=== PATIENT | male | born 1960 | race Caucasian/White ===

== ENCOUNTER 2018-12-15 08:45 | Inpatient (IN) ==
[2018-12-15 09:28] LABS: Basophils % 1.2 % (0.0-0.8); Eosinophils % 1.7 % (0.00-10.9); Hemoglobin 11.5 GM/DL (14.0-18.0); Immature Granulocytes % 0.6 %; Immature Granulocytes Absolute 0.01 #; Lymphocytes % 54.9 % (21.2-54.2); Mean Corpuscular HGB Conc 32.9 GM/DL (32-36); Mean Corpuscular Volume 90.2 FL (87-102); Mean Platelet Volume 10.1 FL (9.6-12.0); Monocytes % 28.9 % (1.7-12.7); Neutrophils % 12.7 % (38.7-73.9); Platelet Count 177 T/CUMM (130-400); Red Blood Count 3.88 MC/CUMM (3.8-5.5); Red Cell Distribution Width 18.5 % (9.3-17.3); White Blood Count 1.7 T/CUMM (4-12)
[2018-12-15] MEDS ORDERED: LACTATED RINGERS 1,000 ML IV ONE ×2 (09:42→11:45)
[2018-12-15 09:47] LABS: PT Patient Result 10.6 SECS (9.6-12.2); Partial Thromboplastin Time 25.3 SECS (20.8-36.0)
[2018-12-15 09:48] LABS: Band Neutrophils 2 % (0-10); Eosinophils 1 % (0-10); Lymphocytes 54 % (20-55); Segmented Neutrophils 15 % (50-85); Total Cells Counted 100
[2018-12-15 09:49] LABS: Microcytosis Slight; Ovalocytes Few; Platelet Estimate Adequate; Schistocytes Slight
[2018-12-15 10:07] LABS: Albumin 3.8 G/DL (3.4-5.0); Bilirubin,Total 0.4 MG/DL (0.2-1.0); Calcium 9.4 MG/DL (8.5-10.1); Osmolality,Calculated 281.7 MOS/KG (273-304); Total Protein 7.8 G/DL (6.4-8.3)
[2018-12-15] MEDS ORDERED: MEROPENEM 1,000 MG in SODIUM CHLORIDE 0.9% 100 ML IV STA (15:15)
[2018-12-15 15:30] LABS: Apearance,Urine Slightly Hazy (Clear); Bacteria,Urine Occasional /HPF (Few); Bilirubin,Urine Negative (Negative); Blood, Urine Negative (Negative); Glucose,Urine (UA) Negative (Negative); Hyaline Casts,Urine 16 /LPF (0-3); Ketones,Urine 5 mg/dL (Negative); Mucus,Urine Many /LPF (Occasional); Nitrite,Urine Negative (Negative); Protein,Urine 100 MG/DL; Sperm,Urine Few /HPF (Negative); Urine Color Amber (Yellow); Urine Specific Gravity 1.025 (1.001-1.035); Urine Urobilinogen < 2.0 EU/DL (0.2-1.0); WBC,Urine 4 /HPF (0-6)
[2018-12-15] MEDS ORDERED: ONDANSETRON 4 MG/2 ML VIAL IV PRN (16:02)
[2018-12-15] MEDS ORDERED: PROMETHAZINE 25 MG TABLET PO PRN (16:02)
[2018-12-15] MEDS ORDERED: ALBUTEROL/IPRATROPIUM 3 ML NEB RESP TX PRN (16:02)
[2018-12-15] MEDS ORDERED: ACETAMINOPHEN 325 MG TABLET PO PRN (16:02)
[2018-12-15] MEDS ORDERED: MAGNESIUM SULF RIDER 2 GM in PREMIX 1 EACH IV PRN (16:08)
[2018-12-15] MEDS ORDERED: MAGNESIUM SULF RIDER 4 GM in PREMIX 1 EACH IV PRN (16:08)
[2018-12-15] MEDS ORDERED: POTASSIUM CHLORIDE RIDER 10 MEQ in PREMIX 1 EACH IV PRN (16:08)
[2018-12-15] MEDS: SODIUM CHLORIDE 0.9% 1,000 ML IV SCH (18:27)
[2018-12-15] MEDS: FILGRASTIM-SNDZ 300 MCG/0.5 ML SYRINGE SUBCUT SCH (18:27)
[2018-12-15] MEDS: ENOXAPARIN 40 MG/0.4 ML SYRINGE SUBCUT SCH (20:52)
[2018-12-15] MEDS: POTASSIUM CHLORIDE RIDER 20 MEQ in PREMIX 1 EACH IV PRN ×2 (20:52→23:27)
[2018-12-15] MEDS: SIMVASTATIN 10 MG TABLET PO SCH (20:52)
[2018-12-15] MEDS ORDERED: PANTOPRAZOLE 40 MG TABLET PO SCH (21:00)
[2018-12-15] MEDS ORDERED: PROMETHAZINE 25 MG/1 ML VIAL IM PRN (22:30)
[2018-12-15] MEDS: LOPERAMIDE 2 MG CAPSULE PO PRN (22:41)
[2018-12-15] MEDS: oxyCODONE ER 20 MG TABLET PO SCH (23:21)
[2018-12-16] MEDS: oxyCODONE ER 20 MG TABLET PO SCH (05:19)
[2018-12-16] MEDS: LOPERAMIDE 2 MG CAPSULE PO PRN ×2 (05:19→17:52)
[2018-12-16 05:32] LABS: Basophils % 0.4 % (0.0-0.8); Eosinophils % 0.9 % (0.00-10.9); Hematocrit 27.3 VOL% (42.0-52.0); Hemoglobin 8.5 GM/DL (14.0-18.0); Immature Granulocytes % 0.4 %; Immature Granulocytes Absolute 0.01 #; Lymphocytes # 0.5 10*3/uL (1.4-4.0); Lymphocytes % 20.3 % (21.2-54.2); Mean Corpuscular HGB Conc 31.1 GM/DL (32-36); Mean Corpuscular Volume 93.8 FL (87-102); Monocytes % 23.8 % (1.7-12.7); Neutrophils % 54.2 % (38.7-73.9); Platelet Count 132 T/CUMM (130-400); Red Blood Count 2.91 MC/CUMM (3.8-5.5); Red Cell Distribution Width 18.6 % (9.3-17.3); White Blood Count 2.3 T/CUMM (4-12)
[2018-12-16 05:55] LABS: Band Neutrophils 17 % (0-10); Eosinophils 2 % (0-10); Lymphocytes 23 % (20-55); Nucleated Red Blood Cells 2 (0-5); Segmented Neutrophils 33 % (50-85); Total Cells Counted 100
[2018-12-16 05:56] LABS: Hypochromasia 1+; Microcytosis Slight; Platelet Estimate Normal
[2018-12-16 06:22] LABS: Bilirubin,Total 0.4 MG/DL (0.2-1.0); Calcium 8.6 MG/DL (8.5-10.1); Osmolality,Calculated 281.4 MOS/KG (273-304); Total Protein 6.4 G/DL (6.4-8.3)
[2018-12-16] MEDS: SODIUM CHLORIDE 0.9% 1,000 ML IV SCH ×2 (06:42→14:53)
[2018-12-16] MEDS ORDERED: amLODIPine 10 MG TABLET PO SCH (09:00)
[2018-12-16] MEDS: FILGRASTIM-SNDZ 300 MCG/0.5 ML SYRINGE SUBCUT SCH (09:35)
[2018-12-16] MEDS: BISMUTH SUBSALICYLATE 30 ML/524 MG 240 ML/BOTTLE PO SCH ×4 (09:35→20:12)
[2018-12-16] MEDS: METOPROLOL SUCCINATE XL 50 MG TABLET PO SCH (09:36)
[2018-12-16] MEDS: ASPIRIN CHEW 81 MG TABLET PO SCH (09:36)
[2018-12-16] MEDS: CLOPIDOGREL 75 MG TABLET PO SCH (09:36)
[2018-12-16] MEDS: PANTOPRAZOLE 40 MG VIAL IV SCH (09:42)
[2018-12-16] MEDS: POTASSIUM CHLORIDE RIDER 20 MEQ in PREMIX 1 EACH IV PRN ×3 (09:44→22:47)
[2018-12-16] MEDS ORDERED: SODIUM CHLORIDE 0.9% 500 ML IV ONE (12:00)
[2018-12-16] MEDS: oxyCODONE IR 5 MG TABLET PO PRN ×2 (13:04→20:11)
[2018-12-16] MEDS: ENOXAPARIN 40 MG/0.4 ML SYRINGE SUBCUT SCH (20:11)
[2018-12-16] MEDS: SIMVASTATIN 10 MG TABLET PO SCH (20:12)
[2018-12-17] MEDS: oxyCODONE IR 5 MG TABLET PO PRN ×4 (02:23→21:50)
[2018-12-17] MEDS: SODIUM CHLORIDE 0.9% 1,000 ML IV SCH ×3 (02:25→10:47)
[2018-12-17 05:14] LABS: Basophils % 0.4 % (0.0-0.8); Eosinophils % 0.4 % (0.00-10.9); Hematocrit 24.4 VOL% (42.0-52.0); Hemoglobin 7.6 GM/DL (14.0-18.0); Immature Granulocytes % 7.8 %; Immature Granulocytes Absolute 0.43 #; Lymphocytes # 0.7 10*3/uL (1.4-4.0); Lymphocytes % 13.5 % (21.2-54.2); Mean Corpuscular HGB Conc 31.1 GM/DL (32-36); Mean Corpuscular Volume 96.4 FL (87-102); Monocytes % 11.5 % (1.7-12.7); NRBC # 0.07 10*3/uL; Neutrophils % 66.4 % (38.7-73.9); Platelet Count 131 T/CUMM (130-400); Red Blood Count 2.53 MC/CUMM (3.8-5.5); Red Cell Distribution Width 19.3 % (9.3-17.3); White Blood Count 5.5 T/CUMM (4-12)
[2018-12-17 05:37] LABS: Albumin 2.5 G/DL (3.4-5.0); Bilirubin,Total 0.6 MG/DL (0.2-1.0); Osmolality,Calculated 282.1 MOS/KG (273-304); Total Protein 5.7 G/DL (6.4-8.3)
[2018-12-17 05:42] LABS: Band Neutrophils 10 % (0-10); Hypochromasia 1+; Lymphocytes 15 % (20-55); Microcytosis Slight; Nucleated Red Blood Cells 3 (0-5); Ovalocytes Slight; Platelet Estimate Normal; Segmented Neutrophils 67 % (50-85); Total Cells Counted 100
[2018-12-17] MEDS ORDERED: SODIUM CHLORIDE 0.9% 1,000 ML IV PRN (08:34)
[2018-12-17] MEDS: METOPROLOL SUCCINATE XL 50 MG TABLET PO SCH (09:29)
[2018-12-17] MEDS: CLOPIDOGREL 75 MG TABLET PO SCH (09:29)
[2018-12-17] MEDS: ASPIRIN CHEW 81 MG TABLET PO SCH (09:29)
[2018-12-17] MEDS: FILGRASTIM-SNDZ 300 MCG/0.5 ML SYRINGE SUBCUT SCH (09:29)
[2018-12-17] MEDS: PANTOPRAZOLE 40 MG VIAL IV SCH (09:29)
[2018-12-17] MEDS: BISMUTH SUBSALICYLATE 30 ML/524 MG 240 ML/BOTTLE PO SCH ×4 (09:35→21:50)
[2018-12-17] MEDS: ENOXAPARIN 40 MG/0.4 ML SYRINGE SUBCUT SCH (21:50)
[2018-12-17] MEDS: SIMVASTATIN 10 MG TABLET PO SCH (21:50)
[2018-12-18] MEDS: oxyCODONE IR 5 MG TABLET PO PRN ×4 (03:24→17:14)
[2018-12-18 04:47] LABS: Basophils # 0.1 10*3/uL (0.0-0.2); Basophils % 0.4 % (0.0-0.8); Eosinophils % 0.3 % (0.00-10.9); Hematocrit 28.8 VOL% (42.0-52.0); Hemoglobin 9.3 GM/DL (14.0-18.0); Immature Granulocytes % 2.8 %; Immature Granulocytes Absolute 0.32 #; Lymphocytes # 0.9 10*3/uL (1.4-4.0); Lymphocytes % 7.6 % (21.2-54.2); Mean Corpuscular HGB Conc 32.3 GM/DL (32-36); Mean Corpuscular Volume 92.6 FL (87-102); NRBC # 0.08 10*3/uL; Neutrophils % 80.9 % (38.7-73.9); Platelet Count 133 T/CUMM (130-400); Red Blood Count 3.11 MC/CUMM (3.8-5.5); Red Cell Distribution Width 18.4 % (9.3-17.3); White Blood Count 11.3 T/CUMM (4-12)
[2018-12-18 05:12] LABS: Band Neutrophils 2 % (0-10); Lymphocytes 5 % (20-55); Metamyelocytes 1 %; Nucleated Red Blood Cells 1 (0-5); Segmented Neutrophils 91 % (50-85); Total Cells Counted 100
[2018-12-18 05:13] LABS: Microcytosis 1+; Ovalocytes Slight; Platelet Estimate Adequate
[2018-12-18 05:19] LABS: Albumin 2.4 G/DL (3.4-5.0); Bilirubin,Total 0.4 MG/DL (0.2-1.0); Calcium 8.1 MG/DL (8.5-10.1); Osmolality,Calculated 283.8 MOS/KG (273-304); Total Protein 5.5 G/DL (6.4-8.3)
[2018-12-18] MEDS: POTASSIUM CHLORIDE RIDER 20 MEQ in PREMIX 1 EACH IV PRN (05:57)
[2018-12-18] MEDS: SODIUM CHLORIDE 0.9% 1,000 ML IV SCH ×2 (05:57→12:12)
[2018-12-18] MEDS ORDERED: DEXT 5% NACL 0.45% KCL 40 MEQ 40 MEQ/1,000 ML BAG IV SCH (08:00)
[2018-12-18] MEDS: POTASSIUM CHLORIDE 20 MEQ TABLET PO SCH ×3 (09:02→14:39)
[2018-12-18] MEDS: CLOPIDOGREL 75 MG TABLET PO SCH (09:02)
[2018-12-18] MEDS: METOPROLOL SUCCINATE XL 50 MG TABLET PO SCH (09:03)
[2018-12-18] MEDS: ASPIRIN CHEW 81 MG TABLET PO SCH (09:03)
[2018-12-18] MEDS: PANTOPRAZOLE 40 MG VIAL IV SCH (09:07)
[2018-12-18] MEDS: BISMUTH SUBSALICYLATE 30 ML/524 MG 240 ML/BOTTLE PO SCH ×3 (09:10→17:08)
[2018-12-18 16:02] VITALS: BP 121/81
[2018-12-18] MEDS ORDERED: HEPARIN LOCK FLUSH 500 UNIT/5 ML SYRINGE IV ONE (16:10)
== END 2018-12-18 17:34 | DRG 392 ==
LOC: N.ED 08:45 → SUATTDRO 16:02 → N.EDINP 16:02 → N.4E 16:39
PROVIDERS: ADMIT Internal Medicine; ATTEND Internal Medicine

== ENCOUNTER 2019-04-12 15:52 | Inpatient (IN) ==
[2019-04-12] MEDS ORDERED: MORPHINE 4 MG/1 ML VIAL IV STA (17:50)
[2019-04-12] MEDS ORDERED: ONDANSETRON 4 MG/2 ML VIAL IV STA (17:50)
[2019-04-12] MEDS ORDERED: LACTATED RINGERS 500 ML IV ONE (17:50)
[2019-04-12 17:57] LABS: Basophils % 0.4 % (0.0-0.8); Eosinophils # 0.1 10*3/uL (0.0-0.87); Eosinophils % 0.9 % (0.00-10.9); Hematocrit 32.7 VOL% (42.0-52.0); Hemoglobin 10.4 GM/DL (14.0-18.0); Immature Granulocytes % 0.7 %; Immature Granulocytes Absolute 0.05 #; Lymphocytes # 1.1 10*3/uL (1.4-4.0); Lymphocytes % 15.2 % (21.2-54.2); Mean Corpuscular HGB Conc 31.8 GM/DL (32-36); Mean Corpuscular Volume 100.3 FL (87-102); Mean Platelet Volume 9.6 FL (9.6-12.0); Neutrophils % 73.8 % (38.7-73.9); Platelet Count 182 T/CUMM (130-400); Red Blood Count 3.26 MC/CUMM (3.8-5.5); Red Cell Distribution Width 14.1 % (9.3-17.3); White Blood Count 7.5 T/CUMM (4-12)
[2019-04-12 18:11] LABS: Osmolality,Calculated 285.1 MOS/KG (273-304)
[2019-04-12] MEDS ORDERED: LACTATED RINGERS 2,000 ML IV ONE (18:29)
[2019-04-12] MEDS ORDERED: FLUCONAZOLE 100 MG TABLET PO STA (18:32)
[2019-04-12] MEDS ORDERED: cefTRIAXone 1,000 MG in SODIUM CHLORIDE 0.9% 100 ML IV STA (18:33)
[2019-04-12 19:02] LABS: Apearance,Urine CLOUDY (Clear); Bilirubin,Urine Negative (Negative); Blood, Urine Negative (Negative); Glucose,Urine (UA) Negative (Negative); Hyaline Casts,Urine 23 /LPF (0-3); Ketones,Urine 5 mg/dL (Negative); Mucus,Urine Many /LPF (Occasional); Nitrite,Urine Negative (Negative); Protein,Urine 30 MG/DL; RBC,Urine 1 /HPF (0-4); Squamous Epithelial Cell,Urine Occasional /HPF (0-10); Urine Color Yellow (Yellow); Urine Specific Gravity 1.025 (1.001-1.035); WBC,Urine 10 /HPF (0-6)
[2019-04-12] MEDS ORDERED: SODIUM CHLORIDE 0.9% 2,000 ML IV STA (19:21)
[2019-04-12] MEDS ORDERED: ONDANSETRON 4 MG/2 ML VIAL IV PRN (19:53)
[2019-04-12] MEDS ORDERED: DOCUSATE SODIUM 100 MG CAPSULE PO PRN (19:53)
[2019-04-12] MEDS ORDERED: ACETAMINOPHEN 325 MG TABLET PO PRN (19:53)
[2019-04-12] MEDS ORDERED: METHOCARBAMOL 750 MG TABLET PO PRN (20:14)
[2019-04-12] MEDS ORDERED: LORazepam 1 MG TABLET PO PRN (20:14)
[2019-04-12] MEDS ORDERED: NITROGLYCERIN SL 0.4 MG TABLET SL PRN (20:14)
[2019-04-12] MEDS ORDERED: PROCHLORPERAZINE 10 MG TABLET PO PRN (20:14)
[2019-04-12] MEDS ORDERED: MORPHINE 4 MG/1 ML VIAL IV PRN (20:17)
[2019-04-12] MEDS ORDERED: LIPASE PROTEASE AMYLASE PO SCH (21:00)
[2019-04-12] MEDS: MELATONIN 3 MG TABLET PO SCH (23:13)
[2019-04-12] MEDS: SIMVASTATIN 20 MG TABLET PO SCH (23:13)
[2019-04-12] MEDS: ENOXAPARIN 40 MG/0.4 ML SYRINGE SUBCUT SCH (23:14)
[2019-04-12] MEDS: SODIUM CHLORIDE 0.9% IV SCH (23:14)
[2019-04-12] MEDS: ACYCLOVIR IV SCH (23:14)
[2019-04-12] MEDS: gemfibroziL 600 MG TABLET PO SCH (23:14)
[2019-04-12] MEDS: POTASSIUM CHLORIDE 10 MEQ TABLET PO SCH (23:14)
[2019-04-12] MEDS: BUDESONIDE/FORMOTEROL 160-4.5 INHALER 6 GM INH SCH (23:15)
[2019-04-13] MEDS: SODIUM CHLORIDE 0.9% IV SCH ×3 (04:04→20:56)
[2019-04-13] MEDS: ACYCLOVIR IV SCH ×3 (04:04→20:56)
[2019-04-13 05:52] LABS: Basophils % 0.6 % (0.0-0.8); Eosinophils # 0.1 10*3/uL (0.0-0.87); Eosinophils % 1.5 % (0.00-10.9); Hematocrit 28.7 VOL% (42.0-52.0); Hemoglobin 9.2 GM/DL (14.0-18.0); Immature Granulocytes % 0.6 %; Immature Granulocytes Absolute 0.03 #; Lymphocytes # 0.9 10*3/uL (1.4-4.0); Lymphocytes % 17.1 % (21.2-54.2); Mean Corpuscular HGB Conc 32.1 GM/DL (32-36); Mean Corpuscular Volume 100.7 FL (87-102); Mean Platelet Volume 9.6 FL (9.6-12.0); Monocytes % 9.8 % (1.7-12.7); Neutrophils % 70.4 % (38.7-73.9); Platelet Count 171 T/CUMM (130-400); Red Blood Count 2.85 MC/CUMM (3.8-5.5); Red Cell Distribution Width 14.2 % (9.3-17.3); White Blood Count 5.3 T/CUMM (4-12)
[2019-04-13 06:17] LABS: Albumin 2.7 G/DL (3.4-5.0); Bilirubin,Total 0.6 MG/DL (0.2-1.0); Calcium 8.1 MG/DL (8.5-10.1); Osmolality,Calculated 282.3 MOS/KG (273-304); Total Protein 6.4 G/DL (6.4-8.3)
[2019-04-13 06:21] LABS: % Iron Saturation 11.8 % (18-50); Ferritin 116.5 ng/ml (26-388)
[2019-04-13 06:24] LABS: Folate 4.4 NG/ML (5.4-24.0); Vitamin B12 383 PG/ML (211-911)
[2019-04-13 06:53] LABS: Sedimentation Rate-Westergren 90 MM/HR (0-20)
[2019-04-13] MEDS: gemfibroziL 600 MG TABLET PO SCH ×2 (09:06→20:54)
[2019-04-13] MEDS: MULTIVITAMIN (BEROCCA) TABLET PO SCH (09:06)
[2019-04-13] MEDS: FLUoxetine 20 MG CAPSULE PO SCH (09:06)
[2019-04-13] MEDS: POTASSIUM CHLORIDE 10 MEQ TABLET PO SCH ×2 (09:07→20:54)
[2019-04-13] MEDS: METOPROLOL SUCCINATE XL 50 MG TABLET PO SCH (09:07)
[2019-04-13] MEDS: CHOLECALCIFEROL 1,000 UNIT TABLET PO SCH (09:08)
[2019-04-13] MEDS: ASPIRIN CHEW 81 MG TABLET PO SCH (09:08)
[2019-04-13] MEDS: CLOPIDOGREL 75 MG TABLET PO SCH (09:09)
[2019-04-13] MEDS: BUDESONIDE/FORMOTEROL 160-4.5 INHALER 6 GM INH SCH ×2 (09:11→20:56)
[2019-04-13] MEDS: ITRACONAZOLE 100 MG CAPSULE PO SCH (09:50)
[2019-04-13] MEDS ORDERED: IRON SUCROSE 300 MG in SODIUM CHLORIDE 0.9% 100 ML IV ONE (10:51)
[2019-04-13] MEDS: FOLIC ACID 1 MG TABLET PO SCH (14:00)
[2019-04-13] MEDS: KETOROLAC 30 MG/1 ML VIAL IV PRN ×2 (14:01→21:04)
[2019-04-13] MEDS: MELATONIN 3 MG TABLET PO SCH (20:54)
[2019-04-13] MEDS: ENOXAPARIN 40 MG/0.4 ML SYRINGE SUBCUT SCH (20:54)
[2019-04-13] MEDS: FERROUS SULFATE 325 MG TABLET PO SCH (20:54)
[2019-04-13] MEDS: SIMVASTATIN 20 MG TABLET PO SCH (20:56)
[2019-04-13] MEDS: cefTRIAXone 1,000 MG in SYRINGE 1 EACH IV SCH (20:57)
[2019-04-14] MEDS: SODIUM CHLORIDE 0.9% IV SCH ×3 (05:54→21:05)
[2019-04-14] MEDS: ACYCLOVIR IV SCH ×3 (05:54→21:05)
[2019-04-14 05:56] LABS: Albumin 2.6 G/DL (3.4-5.0); Bilirubin,Total 0.4 MG/DL (0.2-1.0); Calcium 8.5 MG/DL (8.5-10.1); Osmolality,Calculated 284.4 MOS/KG (273-304); Total Protein 6.3 G/DL (6.4-8.3)
[2019-04-14] MEDS: KETOROLAC 30 MG/1 ML VIAL IV PRN ×2 (09:39→21:00)
[2019-04-14] MEDS: FERROUS SULFATE 325 MG TABLET PO SCH ×2 (09:43→20:58)
[2019-04-14] MEDS: FOLIC ACID 1 MG TABLET PO SCH (09:43)
[2019-04-14] MEDS: MULTIVITAMIN (BEROCCA) TABLET PO SCH (09:43)
[2019-04-14] MEDS: ASPIRIN CHEW 81 MG TABLET PO SCH (09:44)
[2019-04-14] MEDS: FLUoxetine 20 MG CAPSULE PO SCH (09:44)
[2019-04-14] MEDS: CHOLECALCIFEROL 1,000 UNIT TABLET PO SCH (09:45)
[2019-04-14] MEDS: POTASSIUM CHLORIDE 10 MEQ TABLET PO SCH ×2 (09:45→20:58)
[2019-04-14] MEDS: gemfibroziL 600 MG TABLET PO SCH ×2 (09:45→20:58)
[2019-04-14] MEDS: BUDESONIDE/FORMOTEROL 160-4.5 INHALER 6 GM INH SCH ×2 (09:46→20:58)
[2019-04-14] MEDS: CLOPIDOGREL 75 MG TABLET PO SCH (09:46)
[2019-04-14] MEDS: DICLOFENAC 1.3% PATCH 5/PACK TRANSDERM SCH ×2 (10:12→20:59)
[2019-04-14] MEDS: ITRACONAZOLE 100 MG CAPSULE PO SCH (10:14)
[2019-04-14 12:33] LABS: Hemoglobin A1 (Alkaline) 97.5 % (96.5-98.5); Hemoglobin A2 (Alkaline) 2.5 % (1.5-3.5)
[2019-04-14] MEDS: METOPROLOL SUCCINATE XL 50 MG TABLET PO SCH (12:58)
[2019-04-14] MEDS: cefTRIAXone 1,000 MG in SYRINGE 1 EACH IV SCH (20:57)
[2019-04-14] MEDS: MELATONIN 3 MG TABLET PO SCH (20:58)
[2019-04-14] MEDS: SIMVASTATIN 20 MG TABLET PO SCH (20:58)
[2019-04-14] MEDS: ENOXAPARIN 40 MG/0.4 ML SYRINGE SUBCUT SCH (20:59)
[2019-04-15] MEDS: ACYCLOVIR IV SCH ×3 (04:45→22:06)
[2019-04-15] MEDS: SODIUM CHLORIDE 0.9% IV SCH ×3 (04:45→22:06)
[2019-04-15 05:56] LABS: Albumin 2.7 G/DL (3.4-5.0); Bilirubin,Total 0.8 MG/DL (0.2-1.0); Calcium 8.3 MG/DL (8.5-10.1); Osmolality,Calculated 287.8 MOS/KG (273-304); Total Protein 6.6 G/DL (6.4-8.3)
[2019-04-15] MEDS: FLUoxetine 20 MG CAPSULE PO SCH (09:41)
[2019-04-15] MEDS: FOLIC ACID 1 MG TABLET PO SCH (09:41)
[2019-04-15] MEDS: MULTIVITAMIN (BEROCCA) TABLET PO SCH (09:41)
[2019-04-15] MEDS: CHOLECALCIFEROL 1,000 UNIT TABLET PO SCH (09:41)
[2019-04-15] MEDS: ITRACONAZOLE 100 MG CAPSULE PO SCH (09:41)
[2019-04-15] MEDS: POTASSIUM CHLORIDE 10 MEQ TABLET PO SCH ×2 (09:42→22:04)
[2019-04-15] MEDS: FERROUS SULFATE 325 MG TABLET PO SCH ×2 (09:42→22:04)
[2019-04-15] MEDS: CLOPIDOGREL 75 MG TABLET PO SCH (09:42)
[2019-04-15] MEDS: ASPIRIN CHEW 81 MG TABLET PO SCH (09:42)
[2019-04-15] MEDS: gemfibroziL 600 MG TABLET PO SCH ×2 (09:42→22:04)
[2019-04-15] MEDS: BUDESONIDE/FORMOTEROL 160-4.5 INHALER 6 GM INH SCH ×2 (09:42→22:05)
[2019-04-15] MEDS: KETOROLAC 30 MG/1 ML VIAL IV PRN ×2 (12:55→22:12)
[2019-04-15] MEDS: DICLOFENAC 1.3% PATCH 5/PACK TRANSDERM SCH ×2 (16:02→22:38)
[2019-04-15] MEDS: SIMVASTATIN 20 MG TABLET PO SCH (22:03)
[2019-04-15] MEDS: MELATONIN 3 MG TABLET PO SCH (22:04)
[2019-04-15] MEDS: ENOXAPARIN 40 MG/0.4 ML SYRINGE SUBCUT SCH (22:05)
[2019-04-15] MEDS: cefTRIAXone 1,000 MG in SYRINGE 1 EACH IV SCH (22:05)
[2019-04-16] MEDS: ACYCLOVIR IV SCH ×2 (04:49→13:33)
[2019-04-16] MEDS: SODIUM CHLORIDE 0.9% IV SCH ×2 (04:49→13:33)
[2019-04-16 05:19] LABS: Basophils % 0.3 % (0.0-0.8); Eosinophils # 0.1 10*3/uL (0.0-0.87); Eosinophils % 1.8 % (0.00-10.9); Hematocrit 29.9 VOL% (42.0-52.0); Hemoglobin 9.8 GM/DL (14.0-18.0); Immature Granulocytes Absolute 0.12 #; Lymphocytes # 0.8 10*3/uL (1.4-4.0); Lymphocytes % 13.7 % (21.2-54.2); Mean Corpuscular HGB Conc 32.8 GM/DL (32-36); Mean Corpuscular Volume 99.3 FL (87-102); Mean Platelet Volume 9.9 FL (9.6-12.0); Monocytes % 11.5 % (1.7-12.7); Neutrophils % 70.7 % (38.7-73.9); Platelet Count 213 T/CUMM (130-400); Red Blood Count 3.01 MC/CUMM (3.8-5.5); Red Cell Distribution Width 14.4 % (9.3-17.3); White Blood Count 6.1 T/CUMM (4-12)
[2019-04-16 05:39] LABS: Albumin 2.7 G/DL (3.4-5.0); Bilirubin,Total 0.4 MG/DL (0.2-1.0); Calcium 8.7 MG/DL (8.5-10.1); Osmolality,Calculated 283.1 MOS/KG (273-304); Total Protein 7.2 G/DL (6.4-8.3)
[2019-04-16] MEDS: KETOROLAC 30 MG/1 ML VIAL IV PRN ×3 (08:43→22:01)
[2019-04-16] MEDS: CLOPIDOGREL 75 MG TABLET PO SCH (08:52)
[2019-04-16] MEDS: ASPIRIN CHEW 81 MG TABLET PO SCH (08:52)
[2019-04-16] MEDS: ITRACONAZOLE 100 MG CAPSULE PO SCH (08:52)
[2019-04-16] MEDS: MULTIVITAMIN (BEROCCA) TABLET PO SCH (08:52)
[2019-04-16] MEDS: FOLIC ACID 1 MG TABLET PO SCH (08:52)
[2019-04-16] MEDS: POTASSIUM CHLORIDE 10 MEQ TABLET PO SCH ×2 (08:52→21:46)
[2019-04-16] MEDS: FERROUS SULFATE 325 MG TABLET PO SCH ×2 (08:52→21:46)
[2019-04-16] MEDS: gemfibroziL 600 MG TABLET PO SCH ×2 (08:52→21:45)
[2019-04-16] MEDS: FLUoxetine 20 MG CAPSULE PO SCH (08:52)
[2019-04-16] MEDS: CHOLECALCIFEROL 1,000 UNIT TABLET PO SCH (08:52)
[2019-04-16] MEDS ORDERED: POTASSIUM CHLORIDE 20 MEQ TABLET PO ONE (08:59)
[2019-04-16] MEDS: BUDESONIDE/FORMOTEROL 160-4.5 INHALER 6 GM INH SCH ×2 (09:03→22:01)
[2019-04-16] MEDS: DICLOFENAC 1.3% PATCH 5/PACK TRANSDERM SCH ×2 (09:04→23:44)
[2019-04-16] MEDS: ZINC OXIDE 16% PASTE 57 GM TUBE TOP SCH (21:44)
[2019-04-16] MEDS: HYDROCORTISONE 2.5% CREAM 30 GM TUBE TOP SCH (21:44)
[2019-04-16] MEDS: KETOCONAZOLE 2% CREAM 30 GM TUBE TOP SCH (21:44)
[2019-04-16] MEDS: MELATONIN 3 MG TABLET PO SCH (21:45)
[2019-04-16] MEDS: SIMVASTATIN 20 MG TABLET PO SCH (21:45)
[2019-04-16] MEDS: cefTRIAXone 1,000 MG in SYRINGE 1 EACH IV SCH (21:45)
[2019-04-16] MEDS: ENOXAPARIN 40 MG/0.4 ML SYRINGE SUBCUT SCH (21:46)
[2019-04-17 06:01] LABS: Albumin 2.5 G/DL (3.4-5.0); Bilirubin,Total 0.4 MG/DL (0.2-1.0); Calcium 8.5 MG/DL (8.5-10.1); Osmolality,Calculated 288.1 MOS/KG (273-304); Total Protein 6.8 G/DL (6.4-8.3)
[2019-04-17] MEDS: CLOPIDOGREL 75 MG TABLET PO SCH (09:02)
[2019-04-17] MEDS: ITRACONAZOLE 100 MG CAPSULE PO SCH (09:02)
[2019-04-17] MEDS: gemfibroziL 600 MG TABLET PO SCH (09:02)
[2019-04-17] MEDS: FLUoxetine 20 MG CAPSULE PO SCH (09:03)
[2019-04-17] MEDS: CHOLECALCIFEROL 1,000 UNIT TABLET PO SCH (09:03)
[2019-04-17] MEDS: FOLIC ACID 1 MG TABLET PO SCH (09:03)
[2019-04-17] MEDS: POTASSIUM CHLORIDE 10 MEQ TABLET PO SCH (09:03)
[2019-04-17] MEDS: MULTIVITAMIN (BEROCCA) TABLET PO SCH (09:04)
[2019-04-17] MEDS: FERROUS SULFATE 325 MG TABLET PO SCH (09:04)
[2019-04-17] MEDS: ASPIRIN CHEW 81 MG TABLET PO SCH (09:04)
[2019-04-17] MEDS: KETOROLAC 30 MG/1 ML VIAL IV PRN (09:05)
[2019-04-17] MEDS: DICLOFENAC 1.3% PATCH 5/PACK TRANSDERM SCH (09:08)
[2019-04-17] MEDS: BUDESONIDE/FORMOTEROL 160-4.5 INHALER 6 GM INH SCH (09:10)
[2019-04-17] MEDS: ZINC OXIDE 16% PASTE 57 GM TUBE TOP SCH (09:11)
[2019-04-17] MEDS: HYDROCORTISONE 2.5% CREAM 30 GM TUBE TOP SCH (09:11)
[2019-04-17] MEDS: KETOCONAZOLE 2% CREAM 30 GM TUBE TOP SCH (09:11)
[2019-04-17 14:16] VITALS: BP 112/74
== END 2019-04-17 14:30 | disposition home or self-care (01) | DRG 607 ==
LOC: N.ED 15:52 → N.EDINP 19:53 → N.4E 20:22
PROVIDERS: ADMIT Hospitalist; ATTEND Hospitalist